=== PATIENT | female | born 1965 | race Caucasian/White ===

== ENCOUNTER → 2024-10-12 11:29 | Outpatient (CLI) | payer BC, SELFPAY ==
--- NOTE | 2024-10-12 11:29 | DI.MG.S_ITS ---
MM screening mammo BI: 10/12/2024. BI-RADS: 0 CLINICAL: 59-year old female for bilateral screening mammogram. Tyrer-Cuzick lifetime risk of 11.0%. No personal or first-degree family history of breast cancer. Current reported family history of breast cancer: paternal aunt. PRIOR EXAMS: No prior examinations available. MAMMOGRAPHY TECHNIQUE: 2D and 3D (tomosynthesis) digital mammographic views obtained, with additional images as needed for full coverage. Current study was also evaluated with a Computer Aided Detection (CAD) system. DENSITY B. There are scattered areas of fibroglandular density. MAMMOGRAPHY FINDINGS Right: Upper Outer at 10:30, Middle depth: Suspected focal asymmetry needing additional imaging evaluation. Left: No suspicious mass, asymmetry, microcalcification, or other abnormality seen. IMPRESSION: Right (Asymmetry): Upper Outer at 10:30, Middle depth * Incomplete - focal asymmetry needing additional imaging evaluation. Left * No evidence of malignancy. RECOMMENDATIONS Right: Upper Outer at 10:30, Middle depth * Further evaluation with diagnostic mammography and diagnostic ultrasound. OVERALL ASSESSMENT CATEGORY BI-RADS-0: Incomplete - Need Additional Imaging Evaluation. ELECTRONICALLY SIGNED: Tanvir Barrera M.D. on 10/13/2024 at 07:58:22 AM PT Interpreting Station ID: [id number]
== END ==
LOC: MAMMO 11:29
PROVIDERS: PCP Family Medicine; Referring Provider Family Medicine; Visit Provider Family Medicine
DX: Z12.31 Encounter for screening mammogram for malignant neoplasm of breast (principal); Z80.3 Family history of malignant neoplasm of breast
CPT/HCPCS: 77063; 77067

== ENCOUNTER → 2024-10-25 08:36 | Outpatient (CLI) | payer BC, SELFPAY ==
--- NOTE | 2024-10-25 08:38 | DI.MG.S_ITS ---
US breast RT limited, MM diagnostic mammo unilat RT: 10/25/2024 BI-RADS: 3 CLINICAL: 59-year old female for right diagnostic mammogram and right diagnostic breast ultrasound that is a recall from screening on 10/12/2024. Tyrer-Cuzick lifetime risk of 11.0%. No personal or first-degree family history of breast cancer. Current reported family history of breast cancer: paternal aunt. PRIOR EXAMS Mammogram(s): 10/12/2024, 03/06/2021. MAMMOGRAPHY TECHNIQUE: 2D and 3D (tomosynthesis) digital mammographic views obtained, with additional images as needed for full coverage. Current study was also evaluated with a Computer Aided Detection (CAD) system. ULTRASOUND TECHNIQUE Real-time beckman scale and color doppler imaging of the area of clinical interest was performed with image documentation. TARGETED Right Breast Ultrasound: Real-time ultrasound exam was performed focused to area of clinical and/or imaging concern. DENSITY Right: B. There are scattered areas of fibroglandular density. MAMMOGRAPHY FINDINGS Right (finding-1): Upper Outer at 10:30, Middle depth, measuring 0.7 cm: Correlating with findings on screening mammogram there is a circumscribed, oval, equal-density mass present. ULTRASOUND FINDINGS Right (finding-1): Upper Outer at 10:00, 5 cm from nipple, measuring 0.6 x 0.8 x 0.4 cm: Correlating with findings on mammogram there is a complicated cyst present. IMPRESSION: Right (Complicated Cyst): Upper Outer at 10:00, 5 cm from nipple, measuring 0.6 x 0.8 x 0.4 cm * Probably Benign. RECOMMENDATIONS Right: Upper Outer at 10:00, 5 cm from nipple * Six month followup with diagnostic ultrasound and diagnostic mammography. OVERALL ASSESSMENT CATEGORY BI-RADS-3: Probably Benign. ELECTRONICALLY SIGNED: Yanni Zhang M.D. on 10/25/2024 at 09:52:13 AM PT Interpreting Station ID: [id number]
--- NOTE | 2024-10-25 08:38 | DI.US.S_ITS ---
PROCEDURE: US BREAST RT LIMITED COMPARISON: None. INDICATIONS: Right (Asymmetry): Upper Outer at 10:30, Middle depth FINDINGS: IMPRESSION: Dictated by: Yanni Zhang M.D. on 10/25/2024 at 9:47 Approved by: Yanni Zhang M.D. on 10/25/2024 at 9:50
--- NOTE | 2024-10-25 09:17 | DI.US.S_ITS ---
Patient Name: ARMIN FREEMAN date: 1965 Sex: F Attending Physician: Anahy Indications: Date: 10/25/2024 09:52 At the request of: SAHIL MONGE Procedure: US breast RT limited US breast RT limited, MM diagnostic mammo unilat RT: 10/25/2024 BI-RADS: 3 CLINICAL: 59-year old female for right diagnostic mammogram and right diagnostic breast ultrasound that is a recall from screening on 10/12/2024. Tyrer-Cuzick lifetime risk of 11.0%. No personal or firstdegree family history of breast cancer. Current reported family history of breast cancer: paternal aunt. PRIOR EXAMS Mammogram(s): 10/12/2024, 03/06/2021. MAMMOGRAPHY TECHNIQUE: 2D and 3D (tomosynthesis) digital mammographic views obtained, with additional images as needed for full coverage. Current study was also evaluated with a Computer Aided Detection (CAD) system. ULTRASOUND TECHNIQUE Real-time beckman scale and color doppler imaging of the area of clinical interest was performed with image documentation. TARGETED Right Breast Ultrasound: Real-time ultrasound exam was performed focused to area of clinical and/or imaging concern. DENSITY Right: B. There are scattered areas of fibroglandular density. MAMMOGRAPHY FINDINGS Right (finding-1): Upper Outer at 10:30, Middle depth, measuring 0.7 cm: Correlating with findings on screening mammogram there is a circumscribed, oval, equal-density mass present. ULTRASOUND FINDINGS Continued Report - Page 2 of 2 Patient Name: ARMIN FREEMAN date: 1965 Sex: F Attending Physician: Anahy Indications: Date: 10/25/2024 09:52 At the request of: SAHIL MONGE Procedure: US breast RT limited Right (finding-1): Upper Outer at 10:00, 5 cm from nipple, measuring 0.6 x 0.8 x 0.4 cm: Correlating with findings on mammogram there is a complicated cyst present. IMPRESSION: Right (Complicated Cyst): Upper Outer at 10:00, 5 cm from nipple, measuring 0.6 x 0.8 x 0.4 cm * Probably Benign. RECOMMENDATIONS Right: Upper Outer at 10:00, 5 cm from nipple * Six month followup with diagnostic ultrasound and diagnostic mammography. OVERALL ASSESSMENT CATEGORY BI-RADS-3: Probably Benign. ELECTRONICALLY SIGNED: Yanni Zhang M.D. on 10/25/2024 at 09:52:13 AM PT Interpreting Station ID: [id number]
== END ==
PROVIDERS: PCP Family Medicine; Referring Provider Family Medicine; Visit Provider Family Medicine
DX: R92.8 Other abnormal and inconclusive findings on diagnostic imaging of breast (principal); N63.10 Unspecified lump in the right breast, unspecified quadrant; N60.01 Solitary cyst of right breast; Z80.3 Family history of malignant neoplasm of breast
CPT/HCPCS: 76642; 77065; G0279

== ENCOUNTER → 2025-05-21 11:44 | Outpatient (CLI) | payer BC, SELFPAY ==
--- NOTE | 2025-05-21 11:45 | DI.MG.S_ITS ---
MM diagnostic mammo unilat RT, US breast RT limited: 05/21/2025 BI-RADS: 2 CLINICAL: 59-year old female for right diagnostic mammogram and right diagnostic breast ultrasound that is a follow-up to diagnostic mammogram on 10/25/2024. Esperanzaer- Cugregck lifetime risk of 11.0%. No personal or first-degree family history of breast cancer. Current reported family history of breast cancer: paternal aunt. PRIOR EXAMS 10/25/2024, 10/12/2024. MAMMOGRAPHY TECHNIQUE: 2D and 3D (tomosynthesis) digital mammographic views obtained, with additional images as needed for full coverage. Current study was also evaluated with a Computer Aided Detection (CAD) system. ULTRASOUND TECHNIQUE TARGETED Right Breast Ultrasound: Real-time ultrasound exam was performed focused to area of clinical and/or imaging concern. Real-time beckman scale and color doppler imaging of the area of clinical interest was performed with image documentation. DENSITY Right: B. There are scattered areas of fibroglandular density. MAMMOGRAPHY FINDINGS Right: Upper Outer at 10:00, 5 cm from nipple, measuring 0.5cm: Correlating with prior imaging concern there is a circumscribed, oval, equal-density mass present that has decreased in size. This is consistent with a benign etiology. ULTRASOUND FINDINGS Right: Upper Outer at 10:00, 5 cm from nipple, measuring 0.6 x 0.3 x 0.4 cm: There are clustered microcysts. Doppler shows no vascularity. This is an incidental finding. Previously described complicated cyst correlating to the mass on mammogram is no longer visualized. IMPRESSION: Right * No evidence of malignancy with benign findings. RECOMMENDATIONS Bilateral * Annual screening mammography (due October 2025). COMMENTS: Findings and recommendations were conveyed to the patient during today's evaluation. OVERALL ASSESSMENT CATEGORY BI-RADS-2: Benign. The [employer] recommends annual screening mammography beginning at age 40 for women with average risk of breast cancer. ELECTRONICALLY SIGNED: Yanni Zhang M.D. on 05/21/2025 at 04:46:10 PM PT Interpreting Station ID: [id number]
[2025-05-21 14:54] LABS: Hematocrit 42.4 % (36-46); Hemoglobin 14.0 g/dL (12.0-16.0); Mean Corpuscular HGB Conc 33.0 % (30-36); Mean Corpuscular Hemoglobin 28.4 PG (26-34); Mean Corpuscular Volume 86.2 fL (80-100); Platelet Count 336 X10^3/uL (150-400)
[2025-05-21 15:09] LABS: Alanine Aminotransferase 16 IU/L (<35); Albumin 4.4 g/dL (3.5-5.0); Albumin Globulin Ratio 1.6 (1.0-2.8); Alkaline Phosphatase 67 U/L (38-126); Blood Urea Nitrogen 18 mg/dL (7-17); Calcium 9.8 mg/dL (8.4-10.2); Carbon Dioxide 26 mmol/L (22-32); Chloride 106 mmol/L (98-107); Cholesterol 248 mg/dL (140-199); Estimated Glomerular Filt Rate > 60 mL/min (>60); Globulin 2.7 g/dL (1.7-4.1); Glucose 81 mg/dL (70-99); HDL Cholesterol 59 mg/dL (40-60); HEMOLYSIS < 15 (0-50); Potassium 4.4 mmol/L (3.4-5.1); Sodium 140 mmol/L (137-145); Total Protein 7.1 g/dL (6.3-8.2); Triglycerides 164 mg/dL (35-150)
[2025-05-21 15:58] LABS: HIV 1 & 2 Ab/Ag 4th Gen Combo NEGATIVE (NEGATIVE); Hep C Virus Ab w/Reflex Quant NEGATIVE s/c (NEGATIVE)
== END ==
PROVIDERS: PCP Family Medicine; Referring Provider Family Medicine; Visit Provider Family Medicine
DX: Z00.00 Encounter for general adult medical examination without abnormal findings (principal); N63.11 Unspecified lump in the right breast, upper outer quadrant; Z80.3 Family history of malignant neoplasm of breast
CPT/HCPCS: 36415; 76642; 77065; 80053; 80061; 85027; 86803; 87389; G0279